=== PATIENT | female | born 1995 | race Caucasian/White ===

== ENCOUNTER 2022-02-07 03:43 | Inpatient (IN) ==
[2022-02-07] MEDS ORDERED: Lactated Ringers 1000 ml BAG 1,000 ML IV ONE (03:53)
[2022-02-07] MEDS ORDERED: Buffered Lidocaine 1% SYRIN 1 ml INTRADERM ONE (03:53)
[2022-02-07] MEDS ORDERED: Lactated Ringers 1000 ml BAG 1,000 ML IV SCH ×2 (04:00→08:00)
[2022-02-07 04:44] LABS: ABS Eosinophils 0.1 10^3/ul (0-0.6); ABS Lymphocytes 2.2 10^3/ul (1.0-4.8); ABS Monocytes 0.9 10^3/ul (0-0.8); ABS Neutrophils 8.7 10^3/ul (1.5-7.7); Eosinophil % 0.6 %; Hematocrit 36 % (35-47); Hemoglobin 12.2 g/dL (12.0-16.0); Lymphocyte % 18.3 %; Mean Corpuscular HGB Conc 34 g/dL (31-36); Mean Corpuscular Hemoglobin 32 pg (27-31); Mean Corpuscular Volume 92 fL (80-97); Mean Platelet Volume 9.7 fL (7.4-10.4); Platelet Count 155 10^3/uL (150-450); Red Blood Count 3.86 10^6 /uL (3.70-4.87); Red Cell Distribution Width 13 % (10-15); White Blood Count 11.9 10^3/uL (3.5-10.8)
[2022-02-07 05:05] LABS: Urine Benzodiazepine Screen None Detected (None Detect); Urine Cannabinoids Screen None Detected (None Detect); Urine Opiates Screen None Detected (None Detect)
[2022-02-07] MEDS ORDERED: Bupivacaine 0.25% SDV PF 10 ML VIAL INJ ONE (05:06)
[2022-02-07] MEDS ORDERED: fentaNYL 100 mcg/2 ml 50 MCG/ML VIAL ONE (05:06)
[2022-02-07] MEDS ORDERED: Oxytocin in LR 0 UNITS/0 ML BAG IVPB ONE (06:02)
[2022-02-07] MEDS ORDERED: Oxytocin in LR 20 UNITS/1,000 ML BAG IVPB ONE (06:03)
[2022-02-07] MEDS ORDERED: Witch Hazel PAD JAR TOPICAL PRN (07:25)
[2022-02-07] MEDS ORDERED: Dibucaine 1% OINT 28.35 GM TUBE PR PRN (07:25)
[2022-02-07] MEDS ORDERED: Oxytocin in LR 20 UNITS/1,000 ML BAG IVPB SCH (08:00)
[2022-02-08 06:45] LABS: ABS Eosinophils 0.1 10^3/ul (0-0.6); ABS Lymphocytes 2.2 10^3/ul (1.0-4.8); ABS Monocytes 1.1 10^3/ul (0-0.8); ABS Neutrophils 11.4 10^3/ul (1.5-7.7); Eosinophil % 0.9 %; Hematocrit 32 % (35-47); Hemoglobin 10.7 g/dL (12.0-16.0); Lymphocyte % 14.7 %; Mean Corpuscular HGB Conc 34 g/dL (31-36); Mean Corpuscular Hemoglobin 32 pg (27-31); Mean Corpuscular Volume 94 fL (80-97); Mean Platelet Volume 9.6 fL (7.4-10.4); Platelet Count 147 10^3/uL (150-450); Red Blood Count 3.36 10^6 /uL (3.70-4.87); Red Cell Distribution Width 13 % (10-15); White Blood Count 14.8 10^3/uL (3.5-10.8)
[2022-02-08 08:33] VITALS: BP 93/50
== END 2022-02-08 11:45 | disposition home or self-care (01) | DRG 560 ==
LOC: MCHOBOUT 03:43 → MCHOB 04:03
PROVIDERS: ADMIT Midwife; ATTEND Midwife

== ENCOUNTER 2023-09-28 07:55 | Inpatient (IN) ==
[2023-09-28] MEDS ORDERED: Lactated Ringers 1000 ml BAG 1,000 ML IV ONE (08:40)
[2023-09-28] MEDS ORDERED: Lidocaine 1% VIAL 10 MG/ML 30 ML VIAL INJ PRN (08:40)
[2023-09-28] MEDS ORDERED: Buffered Lidocaine 1% SYRIN 1 ml INTRADERM ONE (08:40)
[2023-09-28] MEDS ORDERED: Lactated Ringers 1000 ml BAG 1,000 ML IV SCH ×2 (09:00→13:00)
[2023-09-28 09:44] LABS: Urine Benzodiazepine Screen None Detected (None Detect); Urine Cannabinoids Screen None Detected (None Detect); Urine Opiates Screen None Detected (None Detect)
[2023-09-28 11:31] LABS: Hematocrit 35.3 % (35-45); Hemoglobin 11.9 g/dL (11.5-14.3); Mean Corpuscular Hemoglobin 30.3 pg (27-33); Mean Corpuscular Hgb Conc 33.6 g/dL (31-36); Mean Corpuscular Volume 90.1 fL (80-97); Red Blood Count 3.91 10^6/uL (3.63-4.92); Red Cell Distribution Width 13.5 % (12-17); White Blood Count 9.6 10^3/uL (3.8-11.8)
[2023-09-28 11:57] LABS: ABS Eosinophils 0.1 10^3/uL (0.0-0.5); ABS Lymphocytes 1.6 10^3/uL (1.0-4.8); ABS Monocytes 0.6 10^3/uL (0.0-0.9); ABS Neutrophils 7.3 10^3/uL (1.5-7.6); ABS Nucleated RBC 0.01 10^3/ul; Eosinophil % 0.6 %; Mean Platelet Volume 9.6 fL (7.5-11.2); Nucleated Red Blood Cells % 0.1 %/100WBC (0.0-0.8); Platelet Count 172 10^3/uL (150-450)
[2023-09-28] MEDS ORDERED: Oxytocin in LR 20,000 MILLI.UNIT/1,000 ML BAG IV ONE (11:58)
[2023-09-28] MEDS ORDERED: Oxytocin in LR 20,000 MILLI.UNIT/1,000 ML BAG IV SCH (12:40)
[2023-09-28] MEDS ORDERED: Glycerin ADULT 2.4 gm SUPP PR PRN (12:40)
[2023-09-28] MEDS ORDERED: Witch Hazel PAD JAR TOPICAL PRN (12:40)
[2023-09-28] MEDS ORDERED: Dibucaine 1% OINT 28.35 GM TUBE PR PRN (12:40)
[2023-09-29 06:51] LABS: ABS Eosinophils 0.1 10^3/uL (0.0-0.5); ABS Lymphocytes 2.1 10^3/uL (1.0-4.8); ABS Monocytes 0.9 10^3/uL (0.0-0.9); ABS Neutrophils 9.9 10^3/uL (1.5-7.6); ABS Nucleated RBC 0.01 10^3/ul; Eosinophil % 0.6 %; Hematocrit 35.5 % (35-45); Hemoglobin 11.9 g/dL (11.5-14.3); Lymphocyte % 16.1 %; Mean Corpuscular Hemoglobin 30.4 pg (27-33); Mean Corpuscular Hgb Conc 33.4 g/dL (31-36); Mean Corpuscular Volume 91.1 fL (80-97); Mean Platelet Volume 9.8 fL (7.5-11.2); Nucleated Red Blood Cells % 0.1 %/100WBC (0.0-0.8); Platelet Count 175 10^3/uL (150-450); Red Cell Distribution Width 13.5 % (12-17)
[2023-09-29 14:43] VITALS: BP 96/54
== END 2023-09-29 14:20 | disposition home or self-care (01) | DRG 560 ==
LOC: MCHOBOUT 07:55 → MCHOB 08:20
PROVIDERS: ADMIT Advanced Practice Midwife; ATTEND Advanced Practice Midwife